=== PATIENT | male | born 1990 | race Caucasian/White ===

== ENCOUNTER 2016-12-01 11:40 | Emergency (ER) | payer MEDICAID ==
[~2016-12-01] VITALS: Ht 195.6 cm; Wt 86.2 kg
[2016-12-01 12:02] VITALS: BP 131/72
--- NOTE | 2016-12-01 12:04 | NUR ---
PT WHEELCHAIR ASSISTED BY EMS TO ER LOBBY PER TRIAGE NURSE.
--- NOTE | 2016-12-01 12:07 | NUR ---
PATIENT TO LOBBY PER ERMD
--- NOTE | 2016-12-01 12:33 | NUR ---
PT AMBULATED TO BED 5 AT THIS TIME,
--- NOTE | 2016-12-01 12:33 | NUR ---
PT AMBULATED TO BED 5.
--- NOTE | 2016-12-01 12:40 | NUR ---
26/M BIBA C/O ANXIETY X TODAY. PT DENIES N/V/D; SKIN IS PINK/WARM/DRY; AAOX4 WITH EVEN AND STEADY GAIT; LUNGS CLEAR BL; HR EVEN AND REGULAR; PT DENIES ANY FEVER, CP, SOB, OR COUGH AT THIS TIME; PATIENT STATES PAIN OF 0/10 AT THIS TIME; VSS; PATIENT POSITIONED FOR COMFORT; HOB ELEVATED; BEDRAILS UP X2; BED DOWN. ER MD MADE AWARE OF PT STATUS.
--- NOTE | 2016-12-01 13:48 | NUR ---
Patient being evaluated by physician at bedside.
[2016-12-01 14:41] VITALS: BP 121/87
== END 2016-12-01 14:41 | disposition home or self-care (01) ==
LOC: MED 11:40
DX: F41.9 Anxiety disorder, unspecified (principal); I10 Essential (primary) hypertension; F17.200 Nicotine dependence, unspecified, uncomplicated